=== PATIENT | female | born 1930 | race Two or more races ===

== ENCOUNTER 2017-11-03 11:41 | Emergency (ER) | payer OTHER, MEDICAID ==
[~2017-11-03] VITALS: Ht 170.2 cm; Wt 72.1 kg
--- NOTE | 2017-11-03 12:00 | NUR ---
PT CAME IN WITH C/O COUGH, FEVER, FLU SYMPTOMS, BACK PAIN X 3 DAYS. PT AAOX3. FAMILY MEMBER AT BS. IV ACCESS STARTED. BLOOD DRAWN FOR LABS. URINE SAMPLE OBTAINED, SENTR. SAFETY AND COMFORT MEASURES PROVIDED. WILL MONITOR.
[2017-11-03 13:07] LABS: APPEARANCE,URINE Clear (CLEAR); BILIRUBIN,URINE Negative (NEGATIVE); BLOOD, URINE Trace-intact Ery/uL (NEGATIVE); COLOR,URINE Yellow (YELLOW); KETONES,URINE Negative (NEGATIVE); LEUKOCYTE ESTERASE ,URINE Small (NEGATIVE); NITRITE, URINE Positive (NEGATIVE); PROTEIN,URINE Negative (NEGATIVE); UGLUCOSE Negative (NEGATIVE); UROBILINOGEN,URINE 0.2 EU/dL (0.2)
[2017-11-03 13:10] LABS: BASOPHILS % (AUTO) 0.4 % (0.0-2.0); EOSINOPHILS % (AUTO) 0.9 % (0.0-6.0); HEMATOCRIT 33 % (33-45); HEMOGLOBIN 11.5 g/dL (11.5-14.8); LYMPHOCYTES # (AUTO) 0.8 /CMM (0.8-4.8); LYMPHOCYTES % (AUTO) 17.5 % (20.0-44.0); MEAN CORPUSCULAR HEMOGLOBIN 33 PG (26.0-33.0); MEAN CORPUSCULAR HGB CONC 35 g/dl (31.0-36.0); MEAN CORPUSCULAR VOLUME 94 fL (82-100); MONOCYTES # (AUTO) 0.6 /CMM (0.1-1.30); MONOCYTES % (AUTO) 14.7 % (2.0-12.0); NEUTROPHILS # (AUTO) 2.9 /CMM (1.8-8.9); NEUTROPHILS % (AUTO) 66.5 % (43.0-81.0); PLATELET COUNT (AUTO) 153 /CMM (150-450); RDW COEFFICIENT OF VARIATION 11.6 (11.5-15.0); RED BLOOD CELL COUNT(AUTO) 3.49 MIL/uL (4.0-5.2); WHITE BLOOD COUNT (AUTO) 4.4 K/uL (4.3-11.0)
[2017-11-03 13:14] LABS: BACTERIA,URINE Few /HPF (None Seen)
[2017-11-03 13:17] LABS: CALCIUM, SERUM 9.2 mg/dL (8.5-10.1); CARBON DIOXIDE 28 mmol/L (21-32); CHLORIDE 96 mmol/L (98-107); GLUCOSE 94 mg/dL (74-106); POTASSIUM 4.4 mmol/L (3.5-5.1); SODIUM SERUM 130 mmol/L (136-145); UREA NITROGEN, BLOOD 14 mg/dL (7-18)
[2017-11-03 13:23] LABS: INR 1.07 (0.85-1.15)
[2017-11-03 13:24] LABS: ALANINE AMINOTRANSFERASE 22 U/L (12-78); ALBUMIN 3.3 g/dL (3.4-5.0); ALKALINE PHOSPHATASE 59 U/L (46-116); ASPARTATE AMINOTRANSFERASE 27 U/L (15-37); BILIRUBIN,DIRECT 0.2 mg/dL (0.0-0.2); BILIRUBIN,TOTAL 0.4 mg/dL (0.2-1.0); TOTAL PROTEIN, SERUM 7.1 g/dL (6.4-8.2); TROPONIN I < 0.017 ng/mL (0.00-0.056)
--- NOTE | 2017-11-03 13:40 | NUR ---
IV removed. Catheter intact and site benign. Pressure and 4x4 applied to site. No bleeding noted.
--- NOTE | 2017-11-03 13:42 | NUR ---
Patient discharged to home in stable condition. Written and verbal after care instructions given. Patient verbalizes understanding of instruction.
[2017-11-03 13:43] VITALS: BP 144/62
== END 2017-11-03 13:44 | disposition home or self-care (01) ==
LOC: ER 11:43 → EDBD 11:43 → ER 13:44
DX: J40 Bronchitis, not specified as acute or chronic (principal); I10 Essential (primary) hypertension; I70.0 Atherosclerosis of aorta; M19.90 Unspecified osteoarthritis, unspecified site
CPT/HCPCS: 36415; 71045-TC; 80048-TC; 80076-TC; 81000-TC; 83605-TC; 84484-TC; 85025-TC; 85730-TC; 87040-TC; 87086-TC; 87186-TC; A4606; Z7610

== ENCOUNTER 2019-02-12 05:43 | Emergency (ER) | payer OTHER, MEDICAID ==
[~2019-02-12] VITALS: Ht 165.1 cm; Wt 75.7 kg
--- NOTE | 2019-02-12 06:00 | NUR ---
DAUGHTER STATES THAT THE FALL WAS WITNESSED. NO PASSING OUT PRIOR TO FALL. PT WAS REPORTED LOSING HER BALANCE
--- NOTE | 2019-02-12 06:00 | NUR ---
BIB DAUGHTER FROM HOME. AAOX4. KYRGYZ SPEAKING, DAUGHTER TRANSLATING FOR PT. NO SOB NOTED. AMBULATORY. C/O R WRIST PAIN S/P GLF IN THE BATHROOM. PT BROKE HER FALL USING HER R HAND. NOTED SWELLING ON RIGHT WRIST W/ LIMITED ROM NOTED AT WRIST. REPORTS PAIN SHARP AND THROBBING /10. NO SENSATION LOSS. ABLE TO MOVE FINGERS. PT ADMITS HITTING HEAD BUT DENIES KO. NO NEURO DEFICIT NOTED. TO ER BED 10. AWAITITNG ORDERS
--- NOTE | 2019-02-12 06:00 | NUR ---
Note undone in EDM - 02/12/19 at 0621 by ITALO BIB DAUGHTER FROM HOME. AAOX4. MACEDONIAN SPEAKING, DAUGHTER TRANSLATING FOR PT. NO SOB NOTED. AMBULATORY. C/O R WRIST PAIN S/P GLF IN THE BATHROOM. PT BROKE HER FALL USING HER R HAND. NOTED SWELLING ON RIGHT WRIST W/ LIMITED ROM NOTED AT WRIST. NO SENSATION LOSS. ABLE TO MOVE FINGERS. PT ADMITS HITTING HEAD BUT DENIES KO. NO NEURO DEFICIT NOTED. TO ER BED 10. AWAITITNG ORDERS
[2019-02-12] MEDS ORDERED: ACETAMINOPHEN ES 500 MG TABLET ONE (06:13)
--- NOTE | 2019-02-12 06:27 | NUR ---
LAB AND EKG AT BEDSIDE
[2019-02-12] MEDS ORDERED: ACETAMINOPHEN ES 500 MG TABLET PO ONE (06:30)
[2019-02-12 06:35] LABS: BASOPHILS % (AUTO) 0.9 % (0.0-2.0); EOSINOPHILS % (AUTO) 5.1 % (0.0-6.0); HEMATOCRIT 31 % (33-45); HEMOGLOBIN 10.6 g/dL (11.5-14.8); LYMPHOCYTES # (AUTO) 1.5 /CMM (0.8-4.8); LYMPHOCYTES % (AUTO) 37.2 % (20.0-44.0); MEAN CORPUSCULAR HGB CONC 34 g/dl (31.0-36.0); MEAN CORPUSCULAR VOLUME 100 fL (82-100); MONOCYTES # (AUTO) 0.3 /CMM (0.1-1.30); MONOCYTES % (AUTO) 7.7 % (2.0-12.0); NEUTROPHILS % (AUTO) 49.1 % (43.0-81.0); PLATELET COUNT (AUTO) 139 /CMM (150-450); RED BLOOD CELL COUNT(AUTO) 3.08 MIL/uL (4.0-5.2); WHITE BLOOD COUNT (AUTO) 4.1 K/uL (4.3-11.0)
[2019-02-12 06:57] LABS: CALCIUM, SERUM 8.7 mg/dL (8.5-10.1); CARBON DIOXIDE 24 mmol/L (21-32); CHLORIDE 100 mmol/L (98-107); CREATININE 1.1 mg/dL (0.6-1.3); GLUCOSE 86 mg/dL (74-106); POTASSIUM 4.3 mmol/L (3.5-5.1); SODIUM SERUM 134 mmol/L (136-145); UREA NITROGEN, BLOOD 16 mg/dL (7-18)
--- NOTE | 2019-02-12 07:07 | NUR ---
EMT AT BEDSIDE FOR SPLINTING OF R WRIST
--- NOTE | 2019-02-12 07:41 | NUR ---
Patient discharged to home with family in stable condition. Ambulatory w walker, Written and verbal after care instructions given. Patient verbalizes understanding of instruction.
[2019-02-12 07:43] VITALS: BP 117/73
== END 2019-02-12 07:44 | disposition home or self-care (01) ==
LOC: ER 05:48
DX: S52.591A Other fractures of lower end of right radius, initial encounter for closed fracture (principal); I10 Essential (primary) hypertension; R05 Cough; R55 Syncope and collapse; R41.82 Altered mental status, unspecified; W01.198A Fall on same level from slipping, tripping and stumbling with subsequent striking against other object, initial encounter; Y93.89 Activity, other specified; Y92.002 Bathroom of unspecified non-institutional (private) residence as the place of occurrence of the external cause; Y99.8 Other external cause status
CPT/HCPCS: 36415; 70450-TC; 71045-TC; 73110; 80048-TC; 84484-TC; 85025-TC; 85730-TC

== ENCOUNTER 2019-11-19 15:16 | Inpatient (IN) | payer OTHER ==
[~2019-11-19] VITALS: Ht 162.6 cm; Wt 78.5 kg
--- NOTE | 2019-11-19 15:46 | NUR ---
Nausea, diarrhea, and "body shaking" x 2 days, pt aaox4, -sob, nad noted, vss, pending md lucas
[2019-11-19 16:17] LABS: BASOPHILS % (AUTO) 0.9 % (0.0-2.0); EOSINOPHILS % (AUTO) 1.3 % (0.0-6.0); HEMATOCRIT 34 % (33-45); HEMOGLOBIN 11.3 g/dL (11.5-14.8); LYMPHOCYTES % (AUTO) 36.4 % (20.0-44.0); MEAN CORPUSCULAR HGB CONC 34 g/dl (31.0-36.0); MEAN CORPUSCULAR VOLUME 101 fL (82-100); MONOCYTES # (AUTO) 0.6 /CMM (0.1-1.30); MONOCYTES % (AUTO) 11.3 % (2.0-12.0); NEUTROPHILS # (AUTO) 2.7 /CMM (1.8-8.9); NEUTROPHILS % (AUTO) 50.1 % (43.0-81.0); PLATELET COUNT (AUTO) 140 /CMM (150-450); RED BLOOD CELL COUNT(AUTO) 3.35 MIL/uL (4.0-5.2); WHITE BLOOD COUNT (AUTO) 5.4 K/uL (4.3-11.0)
[2019-11-19 16:26] LABS: CALCIUM, SERUM 8.5 mg/dL (8.5-10.1); CARBON DIOXIDE 25 mmol/L (21-32); CHLORIDE 93 mmol/L (98-107); CREATININE 1.1 mg/dL (0.6-1.3); GLUCOSE 124 mg/dL (74-106); POTASSIUM 3.9 mmol/L (3.5-5.1); SODIUM SERUM 126 mmol/L (136-145); UREA NITROGEN, BLOOD 14 mg/dL (7-18)
[2019-11-19 16:34] LABS: APPEARANCE,URINE Clear (CLEAR); BILIRUBIN,URINE Negative (NEGATIVE); BLOOD, URINE Trace-lysed Ery/uL (NEGATIVE); COLOR,URINE Yellow (YELLOW); KETONES,URINE Negative (NEGATIVE); LEUKOCYTE ESTERASE ,URINE Trace (NEGATIVE); NITRITE, URINE Negative (NEGATIVE); PROTEIN,URINE Negative (NEGATIVE); UGLUCOSE Negative (NEGATIVE); UROBILINOGEN,URINE 0.2 EU/dL (0.2)
[2019-11-19 16:37] LABS: BACTERIA,URINE Rare /HPF (None Seen); SQUAMOUS EPITHELIAL CELL,UR Rare /HPF (None Seen)
[2019-11-19 16:41] LABS: ALANINE AMINOTRANSFERASE 24 U/L (12-78); ALBUMIN 3.7 g/dL (3.4-5.0); ALKALINE PHOSPHATASE 107 U/L (46-116); ASPARTATE AMINOTRANSFERASE 37 U/L (15-37); BILIRUBIN,DIRECT 0.1 mg/dL (0.0-0.2); BILIRUBIN,TOTAL 0.4 mg/dL (0.2-1.0)
[2019-11-19] MEDS ORDERED: ONDANSETRON HCL/PF 4 MG/2 ML VIAL ONE (16:55)
[2019-11-19] MEDS ORDERED: ONDANSETRON HCL/PF 4 MG/2 ML VIAL IM ONE (17:00)
[2019-11-19] MEDS ORDERED: IV NS 0.9% 1,000 ML IV ONE (17:00)
[2019-11-19] MEDS ORDERED: ESCI10TA PO (18:31)
[2019-11-19] MEDS ORDERED: OMEP40CA13 PO (18:31)
[2019-11-19] MEDS ORDERED: GABA-534 PO (18:31)
[2019-11-19] MEDS ORDERED: SULF500T8 PO (18:31)
[2019-11-19] MEDS ORDERED: HYDR200T81 PO (18:31)
[2019-11-19] MEDS ORDERED: SOLI10TA2 PO (18:31)
[2019-11-19] MEDS ORDERED: LOSA25TA27 PO (18:31)
--- NOTE | 2019-11-19 19:30 | NUR ---
PAGED [facility].
--- NOTE | 2019-11-19 19:37 | NUR ---
CALLED NURSING SUP FOR M/S BED.
--- NOTE | 2019-11-19 19:45 | NUR ---
NURSING SUP GAVE M/S BED 327-2.
--- NOTE | 2019-11-19 20:35 | NUR ---
report given to adelina carrera for isaiah pt will be transported to 3rd floor
--- NOTE | 2019-11-19 20:55 | NUR ---
ADOBE FLEX DEVELOPER NOTES Received patient A/O x4, Welsh speaking, from ER via wheelchair accompanied by 1 ER staff. Admitted to tele 327-2 due to hyponatremia and pre-syncope under the service of Dr. Gary Pradhan. Examination Scorer was used. Admission routine done. Initial skin assessment done, patient preferred to keep on her clothes. Per patient she has no skin issues identified at this time. Admission orders noted and carried out. Pt's belongings inventory completed by the assigned STUDENT DEVELOPMENT COORDINATOR. On tele monitor with NSR noted. Offered snacks to patient. Iniated IVF as ordered. Kept on bed clean, dry and comfortable. Call light within easy reach. Will continue to monitor accordingly.
[2019-11-19 21:00] VITALS: BP 168/87
[2019-11-19] MEDS ORDERED: HYDROCODONE/APAP 5/325MG 1 EACH TABLET PO PRN (21:30)
[2019-11-19] MEDS ORDERED: ZOLPIDEM TARTRATE 5 MG TABLET PO PRN (21:30)
[2019-11-19] MEDS ORDERED: MAGNESIUM HYDROXIDE 30 ML UDC PO PRN (21:30)
[2019-11-19] MEDS ORDERED: MAG HYDROX/AL HYDROX/SIMETH 30 ML UDC PO PRN (21:30)
[2019-11-19] MEDS ORDERED: ONDANSETRON HCL/PF 4 MG/2 ML VIAL IVP PRN (21:30)
[2019-11-19] MEDS ORDERED: ACETAMINOPHEN 325 MG TABLET PO PRN (21:30)
[2019-11-19] MEDS ORDERED: Z GUARD REMEDY 2 OZ OINT TP PRN (21:30)
[2019-11-19] MEDS: IV NS 0.9% 1,000 ML IV PRN (21:33)
[2019-11-19 21:41] VITALS: BP 168/87
[2019-11-20] VITALS: BP 130/75
--- NOTE | 2019-11-20 02:57 | NUR ---
RN NOTES Called lab, spoke to Manuela for patient's urine sample ready for bean picker, stored accordingly.
[2019-11-20 04:00] VITALS: BP 135/78
[2019-11-20 04:05] VITALS: BP 155/91
[2019-11-20 04:14] VITALS: BP 147/85
[2019-11-20 04:14] LABS: CREATININE, URINE 24.4 MG/DL (30.0-125.0)
--- NOTE | 2019-11-20 06:26 | NUR ---
RN CLOSING NOTES Patient asleep, easily awaken. On RA, no SOB/respiratory distress noted. With occasional dry cough noted. Afebrile the whole shift. Able to ambulated to bathroom with cane, no unusualities noted. On tele monitor with NSR noted. No N/V noted. Due meds given as ordered. Kept on bed clean, dry and comfortable. Call light within easy reach. Endorsed to the next shift.
[2019-11-20 06:30] LABS: CALCIUM, SERUM 8.1 mg/dL (8.5-10.1); CREATININE 0.9 mg/dL (0.6-1.3); MAGNESIUM 1.9 mg/dL (1.8-2.4); PHOSPHORUS 4.4 mg/dL (2.5-4.9); POTASSIUM 4.4 mmol/L (3.5-5.1)
[2019-11-20 06:33] LABS: BASOPHILS % (AUTO) 0.7 % (0.0-2.0); EOSINOPHILS % (AUTO) 2.5 % (0.0-6.0); HEMATOCRIT 31 % (33-45); HEMOGLOBIN 10.4 g/dL (11.5-14.8); LYMPHOCYTES # (AUTO) 1.4 /CMM (0.8-4.8); LYMPHOCYTES % (AUTO) 34.8 % (20.0-44.0); MEAN CORPUSCULAR HGB CONC 34 g/dl (31.0-36.0); MEAN CORPUSCULAR VOLUME 102 fL (82-100); MONOCYTES # (AUTO) 0.4 /CMM (0.1-1.30); MONOCYTES % (AUTO) 10.4 % (2.0-12.0); NEUTROPHILS # (AUTO) 2.1 /CMM (1.8-8.9); NEUTROPHILS % (AUTO) 51.6 % (43.0-81.0); PLATELET COUNT (AUTO) 132 /CMM (150-450); RED BLOOD CELL COUNT(AUTO) 3.02 MIL/uL (4.0-5.2); WHITE BLOOD COUNT (AUTO) 4.2 K/uL (4.3-11.0)
[2019-11-20 06:37] LABS: THYROID STIMULATING HORMONE 3.045 uIU/mL (0.358-3.74)
[2019-11-20] MEDS ORDERED: PANTOPRAZOLE 40 MG TABLET.DR PO SCH (07:30)
[2019-11-20 08:00] VITALS: BP 136/72
[2019-11-20 08:25] VITALS: BP 136/72
[2019-11-20] MEDS: SULFASALAZINE 500 MG TABLET PO SCH ×2 (08:25→13:29)
[2019-11-20] MEDS ORDERED: SOLIFENACIN SUCCINATE 5 MG TABLET PO SCH (09:00)
[2019-11-20] MEDS ORDERED: OXYBUTYNIN CHLORIDE 5 MG TABLET PO SCH (09:00)
[2019-11-20] MEDS ORDERED: LOSARTAN POTASSIUM 25 MG TABLET PO SCH (09:00)
[2019-11-20] MEDS ORDERED: HYDROXYCHLOROQUINE 200 MG TABLET PO SCH (09:00)
[2019-11-20] MEDS ORDERED: GABAPENTIN 300 MG CAPSULE PO SCH (09:00)
[2019-11-20] MEDS ORDERED: ESCITALOPRAM OXALATE (10 MG) 10 MG TABLET PO SCH (09:00)
[2019-11-20 09:01] LABS: IRON, SERUM 118 ug/dl (50-175); TOTAL IRON BINDING CAPACITY 186 ug/dl (250-450)
[2019-11-20] MEDS: IV NS 0.9% 1,000 ML IV PRN (09:04)
[2019-11-20 09:16] LABS: FERRITIN 255 ng/mL (8-388)
[2019-11-20] MEDS ORDERED: CEPH-570 PO (11:06)
--- NOTE | 2019-11-20 14:27 | NUR ---
MS RN - OPENING NOTES Received patient from assistant shift supervisor nurse, awake, conscious, coherent and cooperative. IVF NS at 75 ml/hr right arm infusing well.
--- NOTE | 2019-11-20 14:28 | NUR ---
MS RN- DISCHARGE TEACHING Talked to patient regarding take home medication. Health teaching given regarding smoking and hyponatremia. I told the patient I made an serbian and israeli copy of the health teaching. IVF removed done.
--- NOTE | 2019-11-20 15:13 | NUR ---
MS RN- DISHARGE Patient awake, alert, cooperative, oriented x4. No complain of pain, stable in room air, ambulatory, denies nausea and vomiting, no complain of dizziness. Seen by nephrologists and cardiologists cleared for discharge. All belongings with the patient and denies any missing items. Accompanied in the lobby by wheelchair.
== END 2019-11-20 15:30 | disposition home or self-care (01) | DRG 641 ==
LOC: ER 15:18 → MED 19:46 → TELE 21:46
PROVIDERS: ATTEND Nurse Practitioner Acute Care
DX: E86.0 Dehydration (principal); N39.0 Urinary tract infection, site not specified; E87.1 Hypo-osmolality and hyponatremia; D53.9 Nutritional anemia, unspecified; M06.9 Rheumatoid arthritis, unspecified; I10 Essential (primary) hypertension; Z79.899 Other long term (current) drug therapy; R63.1 Polydipsia; I70.0 Atherosclerosis of aorta; E86.1 Hypovolemia; D63.8 Anemia in other chronic diseases classified elsewhere; K21.9 Gastro-esophageal reflux disease without esophagitis; G62.9 Polyneuropathy, unspecified; Z87.09 Personal history of other diseases of the respiratory system; B96.89 Other specified bacterial agents as the cause of diseases classified elsewhere
CPT/HCPCS: 36415; 70450-TC; 71045-TC; 80048-TC; 80061-TC; 80076-TC; 81000-TC; 82570-TC; 82728-TC; 82962-TC; 83540-TC; 83605-TC; 83735-TC; 83935-TC; 84100-TC; 84300-TC; 84439-TC; 84443-TC; 84484-TC; 85025-TC; 85730-TC; 87040-TC; 87081-TC; 87086-TC; 93307-TC; 97116-TC; 97530-TC; G0378; J2405; J7030

== ENCOUNTER 2020-04-14 09:49 | Inpatient (IN) | payer OTHER ==
[~2020-04-14] VITALS: Ht 167.6 cm; Wt 70.3 kg
[~2020-04-14 09:49] MED LIST: CEPH-570 PO; ESCI10TA PO; GABA-534 PO; HYDR200T81 PO; LOSA25TA27 PO; OMEP40CA13 PO; SOLI10TA2 PO; SULF500T8 PO
--- NOTE | 2020-04-14 10:05 | NUR ---
PT CAME TO THE ED C/O DIZZINESS SINCE YESTERDAY. WORSE TODAY. PT AAOX4, VSS, RESPIRATIONS EVEN AND UNLABORED ON RA W/ NAD NOTED. PT CONNECTED TO THE STACK YIELD ENGINEER AND POX. WILL CONTINUE TO MONITOR
--- NOTE | 2020-04-14 10:05 | NUR ---
DR JARAMILLO AT BEDSIDE
--- NOTE | 2020-04-14 10:15 | NUR ---
BLOOD COLLECTED AND SENT TO LAB
--- NOTE | 2020-04-14 10:18 | NUR ---
EKG AT BEDSIDE
[2020-04-14] MEDS ORDERED: GLYC10.7 PO (10:19)
[2020-04-14] MEDS ORDERED: FAMO40TA7 PO (10:19)
[2020-04-14] MEDS ORDERED: IV NS 0.9% 500 ML BAG IV ONE (10:30)
[2020-04-14 10:50] LABS: BASOPHILS % (AUTO) 0.7 % (0.0-2.0); EOSINOPHILS % (AUTO) 4.6 % (0.0-6.0); HEMATOCRIT 29 % (33-45); HEMOGLOBIN 9.9 g/dL (11.5-14.8); LYMPHOCYTES # (AUTO) 1.2 /CMM (0.8-4.8); LYMPHOCYTES % (AUTO) 32.4 % (20.0-44.0); MEAN CORPUSCULAR HGB CONC 34 g/dl (31.0-36.0); MEAN CORPUSCULAR VOLUME 102 fL (82-100); MONOCYTES # (AUTO) 0.5 /CMM (0.1-1.30); NEUTROPHILS # (AUTO) 1.9 /CMM (1.8-8.9); NEUTROPHILS % (AUTO) 49.3 % (43.0-81.0); PLATELET COUNT (AUTO) 165 /CMM (150-450); WHITE BLOOD COUNT (AUTO) 3.8 K/uL (4.3-11.0)
[2020-04-14 11:19] LABS: CALCIUM, SERUM 8.3 mg/dL (8.5-10.1); CARBON DIOXIDE 23 mmol/L (21-32); CHLORIDE 95 mmol/L (98-107); CREATININE 0.9 mg/dL (0.6-1.3); GLUCOSE 113 mg/dL (74-106); POTASSIUM 4.6 mmol/L (3.5-5.1); SODIUM SERUM 127 mmol/L (136-145); UREA NITROGEN, BLOOD 17 mg/dL (7-18)
[2020-04-14 11:25] LABS: ALANINE AMINOTRANSFERASE 21 U/L (12-78); ALBUMIN 3.4 g/dL (3.4-5.0); ALKALINE PHOSPHATASE 77 U/L (46-116); ASPARTATE AMINOTRANSFERASE 30 U/L (15-37); BILIRUBIN,DIRECT 0.2 mg/dL (0.0-0.2); BILIRUBIN,TOTAL 0.5 mg/dL (0.2-1.0); TOTAL PROTEIN, SERUM 5.9 g/dL (6.4-8.2)
[2020-04-14] MEDS ORDERED: CEFTRIAXONE 1GM BAG (ER ONLY) 50 ML IV ONE (11:42)
--- NOTE | 2020-04-14 11:54 | NUR ---
URINE COLLECTED AND SENT TO LAB
[2020-04-14] MEDS ORDERED: CEFTRIAXONE 1GM BAG (ER ONLY) 1 GM/50 ML PIGGYBACK IV ONE (12:00)
[2020-04-14 12:39] LABS: APPEARANCE,URINE SL CLOUDY (CLEAR); BILIRUBIN,URINE NEGATIVE (NEGATIVE); BLOOD, URINE NEGATIVE Ery/uL (NEGATIVE); COLOR,URINE YELLOW (YELLOW); KETONES,URINE NEGATIVE (NEGATIVE); LEUKOCYTE ESTERASE ,URINE MODERATE (NEGATIVE); NITRITE, URINE NEGATIVE (NEGATIVE); PROTEIN,URINE NEGATIVE (NEGATIVE); UGLUCOSE NEGATIVE (NEGATIVE); UROBILINOGEN,URINE 0.2 EU/dL (0.2)
--- NOTE | 2020-04-14 12:47 | NUR ---
COVID SWAB SENT TO LAB
[2020-04-14 12:51] LABS: BACTERIA,URINE Rare /HPF (None Seen); RBC,URINE 0-2 /HPF (0-2); SQUAMOUS EPITHELIAL CELL,UR Few /HPF (None Seen)
--- NOTE | 2020-04-14 17:59 | NUR ---
admitting spoke to transfer center still waiting for bed available.
--- NOTE | 2020-04-14 18:12 | NUR ---
CALLED HOUSE SUP FOR TELE BED
--- NOTE | 2020-04-14 18:19 | NUR ---
CALL BACK FROM [facility]ON[facility] WITH TRANSFER INFO: GOING TO [facility]S ROOM 2406, REPORT TO [phone], ACCEPTED BY DR HIGGINBOTHAM
--- NOTE | 2020-04-14 18:20 | NUR ---
CALL FROM RONY, AMBULANCE QAN=[phone]
--- NOTE | 2020-04-14 18:22 | NUR ---
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
--- NOTE | 2020-04-14 18:28 | NUR ---
DR NICHOLE CALLED FOR ADMISSION, SPOKE WITH DR GRAHAM
--- NOTE | 2020-04-14 18:29 | NUR ---
report given to Fang YANG for isaiah
[2020-04-14] MEDS ORDERED: IV NS 0.9% 1,000 ML IV PRN (18:35)
--- NOTE | 2020-04-14 18:35 | NUR ---
called daughter Laura and made aware about patient is staying in the hospital going to room 327-2.
--- NOTE | 2020-04-14 18:39 | NUR ---
wheeled patient via gurney accompanied by EMT in no distress. RN at bedside to assume care.
[2020-04-14] MEDS ORDERED: MAGNESIUM HYDROXIDE 30 ML UDC PO PRN (19:00)
[2020-04-14] MEDS ORDERED: Z GUARD REMEDY 2 OZ OINT TP PRN (19:00)
[2020-04-14] MEDS ORDERED: HYDROCODONE/APAP 5/325MG TABLET PO PRN (19:00)
[2020-04-14] MEDS ORDERED: ACETAMINOPHEN 325 MG TABLET PO PRN (19:00)
[2020-04-14] MEDS ORDERED: MAG HYDROX/AL HYDROX/SIMETH 30 ML UDC PO PRN (19:00)
[2020-04-14] MEDS ORDERED: ONDANSETRON HCL/PF 4 MG/2 ML VIAL IVP PRN (19:00)
--- NOTE | 2020-04-14 19:20 | NUR ---
RN NOTES PATIENT ARRIVED ON FLOOR AT 1850. PATIENT IS AWAKE, ALERT AND ORIENTED X 4. MOSTLY KENYAN SPEAKING. BREATHING EVEN AND UNLABORED ON ROOM AIR. SHOWS NO SIGNS OF ACUTE RESPIRATORY DISTRESS. NO ACUTE PAIN. IV ON R WRIST 18G ITS CLEAN DRY AND INTACT. SHOWS NO SIGNS OF INFILTRATION. RUNNING NS AT 75ML/HR. BELONGINGS CHECKLIST COMPLETED, AND SKIN ASSESSMENT. ORIENTED TO ROOM AND STAFF. SAFETY PRECAUTIONS IN PLACE. BED IN LOWEST POSITION, LOCKED, AND CALL LIGHT KEPT WITHIN REACH. WILL CONTINUE TO MONITOR.
--- NOTE | 2020-04-14 19:36 | NUR ---
TELE/RN NOTES RECEIVED REPORT FROM OR NURSE. PATIENT IS 89 Y/O FEMALE CAME FROM HOME WITH CHIEF COMPLAINED OF LOW BP LOW SODIUM PER DAUGHTER. WITH DIAGNOSIS OF HYPERTENSION. HISTORY OF HYPERTENSION, CHRONIC COUGH AND ARTHRITIS, NO KNOWN ALLERGY, NO ISOLATION FULL CODE. WILL ENDORSED TO MULTIMEDIA DESIGNER NURSE FOR ASSESSMENT AND CONTINUITY OF CARE.
[2020-04-14 20:00] VITALS: BP 130/76
[2020-04-14] MEDS: OXYBUTYNIN CHLORIDE 5 MG TABLET PO SCH (21:06)
[2020-04-14] MEDS: AZITHROMYCIN 500 MG in IV D5W 250 ML IV SCH (21:06)
[2020-04-14] MEDS: FAMOTIDINE (20 MG) 20 MG TABLET PO SCH (21:06)
[2020-04-14] MEDS: ENOXAPARIN SODIUM 40 MG/0.4 ML DISP.SYRIN SQ SCH (21:07)
--- NOTE | 2020-04-15 07:34 | NUR ---
MS RN NOTES PATIENT IS IN BED, ASLEEP, ALERT AND ORIENTED X3- 4. MOSTLY ICELANDIC SPEAKING. BREATHING EVEN AND UNLABORED ON ROOM AIR. SHOWS NO SIGNS OF ACUTE RESPIRATORY DISTRESS. NO ACUTE PAIN. IV ON R FA 20G ITS CLEAN DRY AND INTACT. SHOWS NO SIGNS OF INFILTRATION, NO REDNESS, RUNNING NS AT 75ML/HR. ALL DUE MEDICATIONS GIVEN. SAFETY PRECAUTIONS IN PLACE. BED IN LOWEST POSITION, LOCKED, AND CALL LIGHT KEPT WITHIN REACH. WILL ENDORSE TO ONCOMING NURSE.
[2020-04-15 07:40] LABS: BASOPHILS % (AUTO) 0.9 % (0.0-2.0); EOSINOPHILS % (AUTO) 6.2 % (0.0-6.0); HEMATOCRIT 30 % (33-45); HEMOGLOBIN 9.9 g/dL (11.5-14.8); LYMPHOCYTES # (AUTO) 1.3 /CMM (0.8-4.8); LYMPHOCYTES % (AUTO) 34.3 % (20.0-44.0); MEAN CORPUSCULAR HGB CONC 34 g/dl (31.0-36.0); MEAN CORPUSCULAR VOLUME 101 fL (82-100); MONOCYTES # (AUTO) 0.4 /CMM (0.1-1.30); MONOCYTES % (AUTO) 11.7 % (2.0-12.0); NEUTROPHILS # (AUTO) 1.7 /CMM (1.8-8.9); NEUTROPHILS % (AUTO) 46.9 % (43.0-81.0); PLATELET COUNT (AUTO) 149 /CMM (150-450); RED BLOOD CELL COUNT(AUTO) 2.92 MIL/uL (4.0-5.2); WHITE BLOOD COUNT (AUTO) 3.7 K/uL (4.3-11.0)
[2020-04-15 08:00] VITALS: BP 120/77
[2020-04-15 08:00] LABS: CALCIUM, SERUM 8.4 mg/dL (8.5-10.1); CREATININE 0.9 mg/dL (0.6-1.3); MAGNESIUM 1.9 mg/dL (1.8-2.4); PHOSPHORUS 3.2 mg/dL (2.5-4.9); POTASSIUM 4.5 mmol/L (3.5-5.1)
[2020-04-15] MEDS ORDERED: HYDROXYCHLOROQUINE 200 MG TABLET PO SCH (09:00)
[2020-04-15] MEDS: SULFASALAZINE 500 MG TABLET PO SCH ×3 (09:00→17:16)
[2020-04-15] MEDS: GABAPENTIN 300 MG CAPSULE PO SCH ×2 (09:52→17:16)
[2020-04-15] MEDS: PANTOPRAZOLE 40 MG TABLET.DR PO SCH (09:52)
[2020-04-15] MEDS: LOSARTAN POTASSIUM 25 MG TABLET PO SCH (09:52)
[2020-04-15] MEDS: HYDROXYCHLOROQUINE 200 MG TABLET PO SCH ×2 (09:52→17:16)
[2020-04-15] MEDS: OXYBUTYNIN CHLORIDE 5 MG TABLET PO SCH ×3 (09:52→17:16)
[2020-04-15] MEDS: CEFTRIAXONE 1 G in IV D5W 50 ML IV SCH (11:24)
[2020-04-15 16:00] VITALS: BP 150/75
[2020-04-15 18:07] LABS: OSMOLALITY,URINE 389 mOS/kg (340-1090)
[2020-04-15 18:11] LABS: URINE SODIUM, RANDOM 80 mmol/l (40-220)
--- NOTE | 2020-04-15 19:15 | NUR ---
RN medsurg opening notes Received Pt from morning nurse. Pt is sitting in bed comfortably watching TV. Pt is alert and orientedX3. Respiration is normal in room air. No SOB. No S/S of distress noted. IV sites at RFA# 20 is clean, intact and infusing well NS@ 75 ml/hr. Pt is able to ambulate with a steady gait. Safety precautions is maintained. Bed at low position, brakes locked, side rails upX2 and call light is within reach. Will continue to monitor.
--- NOTE | 2020-04-15 19:20 | NUR ---
Patient resting in room , oriented x3 forgetful. German speaking. Breathing unlabored and even , on room air at this time. Patient's family updated on plan of care and agreed. Patient is ambulatory. All needs attended. Will endors to next shift for REKHA
[2020-04-15] MEDS: AZITHROMYCIN 500 MG in IV D5W 250 ML IV SCH (19:50)
[2020-04-15 20:00] VITALS: BP 149/91
[2020-04-15] MEDS: FAMOTIDINE (20 MG) 20 MG TABLET PO SCH (21:37)
[2020-04-15] MEDS: ENOXAPARIN SODIUM 40 MG/0.4 ML DISP.SYRIN SQ SCH (21:39)
[2020-04-16] MEDS ORDERED: ZOLPIDEM TARTRATE 5 MG TABLET PO PRN
--- NOTE | 2020-04-16 | NUR ---
RN medsurg notes Pt is having insomnia and requesting a sleeping pill. Informed and notified Dr. Harvey. ordered ambien 5mg/PRN/HS. Order carried out.
--- NOTE | 2020-04-16 00:12 | NUR ---
TREY medsuralison notes Pt is having insomnia and requesting a sleeping pill. Administered ambien 5 mg/ PO/PRN as ordered for sleeping. Safety precautions is maintained. Will continue to monitor.
--- NOTE | 2020-04-16 02:00 | NUR ---
RN medsurg notes Pt is sleeping in bed comfortably. No SOB. No S/S of distress noted. Safety precautions is maintained. Will continue to monitor.
--- NOTE | 2020-04-16 07:00 | NUR ---
RN medsurg closing notes Pt is resting in bed comfortably. Pt is alert and orientedX2 and forgetful. Respiration is normal in room air. No SOB. No S/S of distress noted. VS is stable. Afebrile. Routine meds were given as ordered. IV sites at RFA# 20 is clean, intact and infusing well NS@ 75 ml/hr. Kept Pt clean, dry and comfortable. All needs met and attended. Safety precautions is maintained. Bed at low position, brakes locked, side rails upX2 and call light is within reach. Will endorse to morning nurse for REKHA.
--- NOTE | 2020-04-16 07:30 | NUR ---
MS/RN OPENING NOTE Patient resting in bed, A&O x 3, forgetful and will frequently reorient throughout the shift. Breathing even and non-labored on RA, no SOB noted. No respiratory or cardiac distress noted. Denies any pain/discomfort at this time. IV access located on RFA #20, patent and intact, and flushing well. Refuses IV fluids at this time, educated risks and benefits. Sensation from all peripheral extremities intact. Bed locked at lowest position, side rails up x2, and call light is within reach. Instructed patient to call or use call light if in need of assistance. Will continue with current plan of care.
[2020-04-16 07:49] LABS: BASOPHILS % (AUTO) 1.2 % (0.0-2.0); EOSINOPHILS % (AUTO) 7.2 % (0.0-6.0); HEMATOCRIT 31 % (33-45); HEMOGLOBIN 10.5 g/dL (11.5-14.8); LYMPHOCYTES # (AUTO) 1.4 /CMM (0.8-4.8); LYMPHOCYTES % (AUTO) 35.6 % (20.0-44.0); MEAN CORPUSCULAR HGB CONC 34 g/dl (31.0-36.0); MEAN CORPUSCULAR VOLUME 101 fL (82-100); MONOCYTES # (AUTO) 0.5 /CMM (0.1-1.30); MONOCYTES % (AUTO) 11.8 % (2.0-12.0); NEUTROPHILS # (AUTO) 1.7 /CMM (1.8-8.9); NEUTROPHILS % (AUTO) 44.2 % (43.0-81.0); PLATELET COUNT (AUTO) 157 /CMM (150-450); RED BLOOD CELL COUNT(AUTO) 3.06 MIL/uL (4.0-5.2); WHITE BLOOD COUNT (AUTO) 3.8 K/uL (4.3-11.0)
[2020-04-16 08:00] VITALS: BP 148/96
[2020-04-16 08:13] LABS: ALBUMIN 3.5 g/dL (3.4-5.0); BILIRUBIN,TOTAL 0.5 mg/dL (0.2-1.0); CALCIUM, SERUM 8.9 mg/dL (8.5-10.1); CREATININE 0.8 mg/dL (0.6-1.3); TOTAL PROTEIN, SERUM 6.4 g/dL (6.4-8.2)
[2020-04-16 08:16] LABS: THYROID STIMULATING HORMONE 2.307 uIU/mL (0.358-3.74); URIC ACID 3.5 mg/dL (2.6-7.2)
[2020-04-16] MEDS: PANTOPRAZOLE 40 MG TABLET.DR PO SCH (08:26)
--- NOTE | 2020-04-16 08:30 | NUR ---
MS/RN NOTES EKG done, showed Afib, notified Dr. Crowell. No new orders at this time.
[2020-04-16] MEDS: OXYBUTYNIN CHLORIDE 5 MG TABLET PO SCH ×3 (08:56→16:17)
[2020-04-16] MEDS: GABAPENTIN 300 MG CAPSULE PO SCH ×2 (08:56→16:17)
[2020-04-16 08:57] VITALS: BP 148/96
[2020-04-16] MEDS: HYDROXYCHLOROQUINE 200 MG TABLET PO SCH ×2 (08:57→16:17)
[2020-04-16] MEDS: SULFASALAZINE 500 MG TABLET PO SCH ×3 (08:57→16:17)
[2020-04-16] MEDS: LOSARTAN POTASSIUM 25 MG TABLET PO SCH (08:57)
[2020-04-16] MEDS ORDERED: AZIT500T PO (10:02)
[2020-04-16] MEDS: CEFTRIAXONE 1 G in IV D5W 50 ML IV SCH (11:11)
--- NOTE | 2020-04-16 17:45 | NUR ---
MS/SHIPYARD SUPERVISOR NOTES Patient picked up by daughter, Laura, at 1745. Patient denies any pain/discomfort at this time. No nausea and vomiting noted. A&O x 3, forgetful and frequently oriented throughout shift. Breathing even and non-labored on RA. No cardiac distress noted. IV access removed on RFA #20 gauge with catheter intact, placed clean dry dressing on the site and taped it. No s/s of infection, infiltration, and bleeding noted. Sensation from all peripheral extremities intact. No skin impairments noted. Educated patient and daughter regarding discharge instructions and answered their questions to their satisfaction. Both verbalized understanding. Patient left facility safely along with all belongings and discharge information.
== END 2020-04-16 17:45 | disposition home health service (06) | DRG 194 ==
LOC: ER 10:02 → TELE 18:32 → MED 21:35
PROVIDERS: ADMIT Internal Medicine; ATTEND Internal Medicine
DX: J15.9 Unspecified bacterial pneumonia (principal); E87.1 Hypo-osmolality and hyponatremia; I10 Essential (primary) hypertension; M19.90 Unspecified osteoarthritis, unspecified site; M06.4 Inflammatory polyarthropathy; K21.9 Gastro-esophageal reflux disease without esophagitis; Z79.899 Other long term (current) drug therapy; D89.9 Disorder involving the immune mechanism, unspecified; E86.1 Hypovolemia; E11.42 Type 2 diabetes mellitus with diabetic polyneuropathy; E86.0 Dehydration
CPT/HCPCS: 36415; 71045-TC; 80048-TC; 80053-TC; 80076-TC; 81000-TC; 83735-TC; 83935-TC; 84100-TC; 84300-TC; 84443-TC; 84484-TC; 84550-TC; 85025-TC; 97116-TC; 97530-TC; C9803-CS; G0378; J0456; J0696; J1650; J2405; J7030; J7040; J7060